=== PATIENT | female | born 1990 | race Caucasian/White ===

== ENCOUNTER 2019-07-28 08:41 | Outpatient (CLI) | payer OTHER | END 2019-07-28 23:59 | disposition home or self-care (01) | LOC: CARD 08:41 | PROVIDERS: ATTEND Nurse Practitioner Family | DX: R56.9 Unspecified convulsions (principal) | CPT/HCPCS: 95819 ==

== ENCOUNTER 2019-08-04 01:47 | Emergency (ER) | payer OTHER ==
[~2019-08-04] VITALS: Ht 154.9 cm; Wt 89.8 kg
[2019-08-04] MEDS ORDERED: AMIT25TA PO (02:17)
--- NOTE | 2019-08-04 02:17 | NUR ---
THIS IS A 28 YO FEMALE COMING IN FOR "I WAS TRYING TO GO TO SLEEP, AND ALL OF THE SUDDEN IT FELT LIKE MY HEART WS RACING, AND I HAD ALL THIS ENERGY ALMOST LIKE I JUST DRANK AN ENERGY DRINK. IT FELT LIKE I NEEDED TO GO WORKOUT OR SOMETHING." PATIENT DENIES ANY SOB, DENIES CP AT THIS TIME, STATES "IT JUST FELT WEIRD, I THINK IT'S GETTING BETTER THOUGH. THIS HAS NEVER HAPPENED TO BE BEFORE." ONLY MEDICAL HX IS HEMIPLEGIC MIGRAINES, STATES "THERE WAS A MISDIAGNOSIS BEFORE OF TIA, BUT THEN AFTER ALL THE TESTS THEY SAID IT WAS THESE HEMIPLEGIC MIGRAINES". PATIENT IS A&OX4, APPEARS TEARY, STATES "I'M JUST NERVOUS AND ANXIOUS", NO OTHER ACUTE DISTRESS NOTED, VSS, CALL LIGHT IN REACH. ALL MONITORING IN PLACE, NSR ON MONITOR.
[2019-08-04] MEDS ORDERED: LORazepam 1MG TABLET ONE (02:22)
--- NOTE | 2019-08-04 02:26 | NUR ---
PATIENT MEDICATED PER EMAR, TOLERATED WELL. DENIES NEEDS AT THIS TIME.
[2019-08-04] MEDS ORDERED: LORazepam 1MG TABLET PO ONE (02:30)
[2019-08-04 02:33] LABS: MEAN CORPUSCULAR HEMOGLOBIN 28.6 pg (27.0-34.8); MEAN CORPUSCULAR HGB CONC 33.4 g/dL (32.4-35.8); MEAN CORPUSCULAR VOLUME 85.7 fL (80-100); MEAN PLATELET VOLUME 8.3 fL (7.4-10.4); PLATELET COUNT 311 x10^3/uL (130-400); RED BLOOD COUNT 4.79 x10^6/uL (3.82-5.3); RED CELL DISTRIBUTION WIDTH 13.4 % (9.6-15.2)
[2019-08-04 02:43] LABS: ALBUMIN 3.7 g/dL (3.4-5.0); ANION GAP 6 mmol/L (5-15); CALCIUM 9.1 mg/dL (8.5-10.1); CHLORIDE 111 mmol/L (98-107); CREATININE 0.76 mg/dL (0.55-1.02)
[2019-08-04 02:47] LABS: TROPONIN I < 0.015 ng/mL (0.000-0.045)
[2019-08-04 02:52] LABS: BASOPHILS # (AUTO) 0.07 x10^3/uL (0-0.1); BASOPHILS % (AUTO) 1 % (0-1); EOSINOPHILS # (AUTO) 0.18 x10^3/uL (0-0.4); EOSINOPHILS % (AUTO) 2 % (1-7); LYMPHOCYTES % (AUTO) 43 % (22-44); MD SCAN; MONOCYTES % (AUTO) 6 % (2-9); NEUTROPHILS # (AUTO) 5.73 x10^3/uL (1.8-6.8); NEUTROPHILS % (AUTO) 49 % (42-75)
--- NOTE | 2019-08-04 03:11 | NUR ---
PATIENT AMBULATORY WITH STEADY GAIT TO RESTROOM
[2019-08-04 03:37] VITALS: BP 125/83
== END 2019-08-04 03:42 | disposition home or self-care (01) ==
LOC: ED 02:38
DX: R07.89 Other chest pain (principal); R00.2 Palpitations; F41.1 Generalized anxiety disorder
CPT/HCPCS: 36415; 71045; 80048; 82040; 84484; 84703; 85025; 93005; 99284

== ENCOUNTER 2019-10-23 15:08 | Outpatient (CLI) | payer OTHER ==
[~2019-10-23 15:08] MED LIST: AMIT25TA PO
[2019-10-23] MEDS ORDERED: RIBO25TA PO (16:49)
[2019-10-23] MEDS ORDERED: NORT10CA PO (16:49)
== END 2019-10-23 23:59 | disposition home or self-care (01) ==
LOC: RAD 15:08 → EDSTATUS 15:30 → RAD 23:59
PROVIDERS: ATTEND Nurse Practitioner
DX: I82.411 Acute embolism and thrombosis of right femoral vein (principal)

== ENCOUNTER 2019-10-23 16:09 | Emergency (ER) | payer OTHER ==
[~2019-10-23] VITALS: Ht 154.9 cm; Wt 87.5 kg
[2019-10-23] MEDS ORDERED: APIXABAN 5 MG TABLET PO STA (16:31)
[2019-10-23] MEDS ORDERED: APIXABAN 5 MG TABLET ONE (16:43)
[2019-10-23] MEDS ORDERED: RIBO25TA PO (16:49)
[2019-10-23] MEDS ORDERED: NORT10CA PO (16:49)
[2019-10-23] MEDS ORDERED: LORazepam 1MG TABLET ONE (16:57)
[2019-10-23] MEDS ORDERED: LORazepam 1MG TABLET PO ONE (17:00)
[2019-10-23 17:01] LABS: BASOPHILS # (AUTO) 0.04 x10^3/uL (0-0.1); BASOPHILS % (AUTO) 1 % (0-1); EOSINOPHILS # (AUTO) 0.08 x10^3/uL (0-0.4); EOSINOPHILS % (AUTO) 1 % (1-7); LYMPHOCYTES # (AUTO) 3.45 x10^3/uL (1-3.4); LYMPHOCYTES % (AUTO) 45 % (22-44); MD NO; MEAN CORPUSCULAR HEMOGLOBIN 28.7 pg (27.0-34.8); MEAN CORPUSCULAR HGB CONC 33.7 g/dL (32.4-35.8); MEAN CORPUSCULAR VOLUME 85.2 fL (80-100); MEAN PLATELET VOLUME 8.4 fL (7.4-10.4); MONOCYTES # (AUTO) 0.47 x10^3/uL (0.2-0.8); MONOCYTES % (AUTO) 6 % (2-9); NEUTROPHILS # (AUTO) 3.69 x10^3/uL (1.8-6.8); NEUTROPHILS % (AUTO) 48 % (42-75); PLATELET COUNT 307 x10^3/uL (130-400); RED BLOOD COUNT 5.03 x10^6/uL (3.82-5.3); RED CELL DISTRIBUTION WIDTH 13.1 % (9.6-15.2)
[2019-10-23 17:08] LABS: CHLORIDE 107 mmol/L (98-107)
[2019-10-23 17:09] LABS: ALBUMIN 3.9 g/dL (3.4-5.0); ANION GAP 8 mmol/L (5-15); CALCIUM 9.5 mg/dL (8.5-10.1); CREATININE 0.82 mg/dL (0.55-1.02)
[2019-10-23 17:59] VITALS: BP 124/72
--- NOTE | 2019-10-23 18:00 | NUR ---
pt resting in room. vss. no needs expressed. 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 awaiting lab results.
== END 2019-10-23 19:17 | disposition home or self-care (01) ==
LOC: ED 18:24
DX: I82.411 Acute embolism and thrombosis of right femoral vein (principal); M79.604 Pain in right leg; Z86.718 Personal history of other venous thrombosis and embolism; Z86.73 Personal history of transient ischemic attack (TIA), and cerebral infarction without residual deficits
CPT/HCPCS: 36415; 80048; 81240; 82040; 85025; 85300; 85303; 85306; 85613; 85670; 85705; 85732; 86147; 99283

== ENCOUNTER 2019-10-31 15:06 | Emergency (ER) | payer OTHER ==
[~2019-10-31] VITALS: Ht 162.6 cm; Wt 86.7 kg
[~2019-10-31 15:06] MED LIST changes: +NORT10CA PO; +RIBO25TA PO
--- NOTE | 2019-10-31 15:25 | NUR ---
NIL X1
[2019-10-31 15:57] LABS: BASOPHILS # (AUTO) 0.05 x10^3/uL (0-0.1); BASOPHILS % (AUTO) 1 % (0-1); EOSINOPHILS # (AUTO) 0.07 x10^3/uL (0-0.4); EOSINOPHILS % (AUTO) 1 % (1-7); LYMPHOCYTES # (AUTO) 3.24 x10^3/uL (1-3.4); LYMPHOCYTES % (AUTO) 46 % (22-44); MD NO; MEAN CORPUSCULAR HEMOGLOBIN 28.7 pg (27.0-34.8); MEAN CORPUSCULAR HGB CONC 33.3 g/dL (32.4-35.8); MEAN CORPUSCULAR VOLUME 86.4 fL (80-100); MEAN PLATELET VOLUME 8.2 fL (7.4-10.4); MONOCYTES # (AUTO) 0.67 x10^3/uL (0.2-0.8); MONOCYTES % (AUTO) 9 % (2-9); NEUTROPHILS # (AUTO) 3.05 x10^3/uL (1.8-6.8); NEUTROPHILS % (AUTO) 43 % (42-75); PLATELET COUNT 309 x10^3/uL (130-400); RED BLOOD COUNT 5.08 x10^6/uL (3.82-5.3); RED CELL DISTRIBUTION WIDTH 13.1 % (9.6-15.2)
[2019-10-31 16:02] LABS: ALBUMIN 3.8 g/dL (3.4-5.0); ANION GAP 5 mmol/L (5-15); CALCIUM 9.2 mg/dL (8.5-10.1); CHLORIDE 108 mmol/L (98-107); CREATININE 0.87 mg/dL (0.55-1.02)
--- NOTE | 2019-10-31 16:43 | NUR ---
PET TRAINER: PT TO ROOM AT THIS TIME. STEADY UPON AMBULATION.
[2019-10-31] MEDS ORDERED: APIX5TAB PO (17:08)
--- NOTE | 2019-10-31 17:09 | NUR ---
THIS IS A 28 YO F W/ C/O UPPR RT CHEST PAIN RADIATING INTO NECK THAT STARTED 2 DAYS AGO. PT REPORTS THAT SHE WAS DX W/ DVT LAST WEEK AND HAS BEEN ON ELIQUISX9 DAYS. PT REPORTS HX OF TIA IN 2014. PT TACHYCARDIC, OTHER VS WDL. PT IS ANXIOUS AND TEARFUL. CONNECTED TO ALL MONITORING W/ CALL LIGHT IN REACH. IN ROOM. DENIES FURTHER NEEDS AT THIS TIME.
--- NOTE | 2019-10-31 17:53 | NUR ---
PT AMBULATED TO THE BR W/ A STEADY GAIT.
--- NOTE | 2019-10-31 18:00 | NUR ---
PT TO CT.
--- NOTE | 2019-10-31 18:14 | NUR ---
PT BACK FROM CT.
[2019-10-31] MEDS ORDERED: OMNIPAQUE 350 MG/ML, 75ML BOTTLE ONE (18:22)
[2019-10-31 18:28] VITALS: BP 124/78
--- NOTE | 2019-10-31 18:55 | NUR ---
ALL TESTS RESULTED PT IS UP FOR RECHECK AT THIS TIME.
--- NOTE | 2019-10-31 19:07 | NUR ---
IN ROOM UPDATING PT ON RESULTS.
--- NOTE | 2019-10-31 19:22 | NUR ---
Patient given discharge instructions and they have confirmed that they understand the instructions. Patient ambulatory with steady gait.
== END 2019-10-31 19:23 | disposition home or self-care (01) ==
LOC: ED 17:09
DX: R07.89 Other chest pain (principal); M54.2 Cervicalgia; R00.0 Tachycardia, unspecified; Z86.718 Personal history of other venous thrombosis and embolism
CPT/HCPCS: 36415; 71275; 80048; 82040; 85025; 93005; 99285; Q9967

== ENCOUNTER → 2019-11-05 | Outpatient (CLI) | payer OTHER ==
[~2019-11-05] MED LIST changes: +APIX5TAB PO
== END | disposition home or self-care (01) ==
LOC: RAD 16:59
PROVIDERS: ATTEND Nurse Practitioner Family
DX: M54.2 Cervicalgia (principal); Z86.73 Personal history of transient ischemic attack (TIA), and cerebral infarction without residual deficits
CPT/HCPCS: 93880

== ENCOUNTER 2020-02-10 12:07 | Emergency (ER) | payer OTHER ==
[~2020-02-10] VITALS: Ht 157.5 cm; Wt 85.3 kg
[2020-02-10] MEDS ORDERED: SODIUM CHLORIDE FLUSH 10ML SYR IVF ONE (14:30)
[2020-02-10 14:31] LABS: BASOPHILS # (AUTO) 0.05 x10^3/uL (0-0.1); BASOPHILS % (AUTO) 1 % (0-1); EOSINOPHILS # (AUTO) 0.08 x10^3/uL (0-0.4); EOSINOPHILS % (AUTO) 1 % (1-7); LYMPHOCYTES # (AUTO) 3.08 x10^3/uL (1-3.4); LYMPHOCYTES % (AUTO) 37 % (22-44); MD NO; MEAN CORPUSCULAR HEMOGLOBIN 28.7 pg (27.0-34.8); MEAN CORPUSCULAR HGB CONC 33.4 g/dL (32.4-35.8); MEAN CORPUSCULAR VOLUME 85.9 fL (80-100); MEAN PLATELET VOLUME 8.7 fL (7.4-10.4); MONOCYTES # (AUTO) 0.47 x10^3/uL (0.2-0.8); MONOCYTES % (AUTO) 6 % (2-9); NEUTROPHILS # (AUTO) 4.57 x10^3/uL (1.8-6.8); NEUTROPHILS % (AUTO) 55 % (42-75); PLATELET COUNT 353 x10^3/uL (130-400); RED BLOOD COUNT 5.26 x10^6/uL (3.82-5.3); RED CELL DISTRIBUTION WIDTH 13.4 % (9.6-15.2)
[2020-02-10 14:38] LABS: ALBUMIN 4.4 g/dL (3.4-5.0); ANION GAP 7 mmol/L (5-15); CHLORIDE 113 mmol/L (98-107); CREATININE 0.95 mg/dL (0.55-1.02)
--- NOTE | 2020-02-10 14:40 | NUR ---
PT CAME IN CO OF CHEST PAIN THAT CAME ON SUDDENLY ON TUESDAY. PT STATES SHE IS TAKING ELIQUIS FOR A DVT. PT ALSO REPORTS THAT SHE HAS A HX OF TIA. PT IS RESTING IN [facility]. CONNECTED TO MONITORING EQUIPMENT. IV STARTED. AWAITING CT
[2020-02-10 14:42] LABS: TROPONIN I < 0.015 ng/mL (0.000-0.045)
[2020-02-10] MEDS ORDERED: OMNIPAQUE 350 MG/ML, 75ML BOTTLE ONE (15:17)
[2020-02-10 15:43] VITALS: BP 127/89
== END 2020-02-10 16:37 | disposition home or self-care (01) ==
LOC: ED 15:44
DX: R07.89 Other chest pain (principal); M79.662 Pain in left lower leg; R06.02 Shortness of breath; Z79.01 Long term (current) use of anticoagulants
CPT/HCPCS: 36415; 71045; 71275; 80048; 82040; 84484; 84703; 85025; 93005; 99285; Q9967

== ENCOUNTER 2020-12-27 11:14 | Emergency (ER) | payer OTHER ==
[~2020-12-27] VITALS: Ht 154.9 cm; Wt 90.1 kg
--- NOTE | 2020-12-27 11:45 | NUR ---
PT HERE FOR C/O RIGHT LE PAIN ON CALF X3 DAYS, PT REPORTS HX OF BLOOD CLOT ON RLE, TAKING ELIQUIS.
[2020-12-27] MEDS ORDERED: APIX2.5T PO (11:50)
[2020-12-27] MEDS ORDERED: BUPR150T22 PO (11:50)
--- NOTE | 2020-12-27 12:35 | NUR ---
PT RESTING ON DARIUS NADN/VSS. CALL LIGHT WITHIN REACH. FAMILY AT BS
[2020-12-27 13:42] VITALS: BP 118/76
--- NOTE | 2020-12-27 13:43 | NUR ---
PT SITTING ON ANTELMO MCCOY/FRANCINE. FAMILY AT BS. NO NEEDS AT THIS TIME. CALL LIGHT WITHIN REACH
--- NOTE | 2020-12-27 13:54 | NUR ---
Patient given discharge instructions and they have confirmed that they understand the instructions. Patient ambulatory with steady gait.
== END 2020-12-27 13:55 | disposition home or self-care (01) ==
LOC: ED 13:41
DX: M79.661 Pain in right lower leg (principal); Z86.718 Personal history of other venous thrombosis and embolism
CPT/HCPCS: 99284